=== PATIENT | male | born 1965 | race Caucasian/White ===

== ENCOUNTER 2017-04-28 10:50 | Observation (INO) | payer OTHER ==
[~2017-04-28] VITALS: Ht 167.6 cm; Wt 118.2 kg
[~2017-04-28 10:50] MED LIST: CLOPIDOGREL75 MG PO; CRESTOR40 MG PO; IMDUR30 MG PO; LIPITOR80 MG PO; LISINOPRIL5 MG PO; LOPRESSOR50 MG PO; LOW DOSE ASPIRI81 M1 PO; METOPROLOL TART50 MG PO; NAPROSYN500 MG PO; NITROSTAT0.4 MG SL; OMEPRAZOLE40 M1 PO; PERCOCET 5/31 TABLET PO; PLAVIX75 MG PO; PRAVACHOL80 MG PO; PRAVASTATIN SOD80 MG PO; TORADOL10 MG PO; ZOFRAN4 MG PO
[2017-04-28 11:26] LABS: HEMATOCRIT 42.5 % (38.0-50.0); HEMOGLOBIN 14.7 G/DL (12.5-16.6); MCH 31.8 PG (29.0-34.0); MCHC 34.6 G/DL (30.0-36.0); PLATELET COUNT 235 K/uL (156-360); RBC DIS.WIDTH-CV 12.4 % (11.8-14.6); RBC DIS.WIDTH-SD 41.6 % (39-53); RED BLOOD COUNT 4.62 M/uL (4.00-5.50); WHITE BLOOD COUNT 8.7 K/uL (4.1-10.2)
[2017-04-28 11:37] LABS: CHLORIDE 103 mEq/L (99-109); POTASSIUM 4.6 mEq/L (3.7-5.4); SODIUM 136 mEq/L (136-147)
[2017-04-28 11:39] LABS: GLUCOSE 97 mg/dL (70-99)
[2017-04-28 11:43] LABS: CREATININE 1.1 mg/dL (0.6-1.3); GFR ESTIMATE (CALCULATED) > 59 mL/min/ (58.99-99999)
[2017-04-28 11:44] LABS: UREA NITROGEN (BUN) 14 mg/dL (9-23)
[2017-04-28 11:48] LABS: TROP-I INTERPRETATION NEGATIVE; TROPONIN-I < 0.01 ng/mL (0.0-0.30)
[2017-04-28] MEDS ORDERED: ATARAX10 MG PO (16:04)
[2017-04-28] MEDS ORDERED: ZOLOFT100 MG PO (16:04)
[2017-04-28 16:47] LABS: TROP-I INTERPRETATION NEGATIVE; TROPONIN-I < 0.01 ng/mL (0.0-0.30)
[2017-04-28 19:27] VITALS: BP 146/85
[2017-04-28 20:13] LABS: TROP-I INTERPRETATION NEGATIVE; TROPONIN-I < 0.01 ng/mL (0.0-0.30)
[2017-04-28 23:39] VITALS: BP 112/62
[2017-04-29 04:00] VITALS: BP 117/57
[2017-04-29 09:30] VITALS: BP 122/60
[2017-04-29 11:15] VITALS: BP 111/59
[2017-04-29] MEDS ORDERED: CLOPIDOGREL75 MG PO (12:34)
== END 2017-04-29 14:37 | disposition home or self-care (01) ==
LOC: EME 10:50 → EDOF 15:55 → ENRESERV 16:08 → 5WEST 19:15 → ENPENDDIS 04-29 12:41 → 5WEST 04-29 14:37
PROVIDERS: Physician Assistant
DX: R07.9 Chest pain, unspecified (principal); R68.84 Jaw pain; R06.02 Shortness of breath; I25.10 Atherosclerotic heart disease of native coronary artery without angina pectoris; Z95.5 Presence of coronary angioplasty implant and graft; I10 Essential (primary) hypertension; E78.5 Hyperlipidemia, unspecified; Z87.442 Personal history of urinary calculi; K21.9 Gastro-esophageal reflux disease without esophagitis; Z87.19 Personal history of other diseases of the digestive system; Z82.49 Family history of ischemic heart disease and other diseases of the circulatory system; Z79.82 Long term (current) use of aspirin
CPT/HCPCS: 71046; 80048; 84484; 85027; 93005; 99281; 99285; G0378; J1650